=== PATIENT | female | born 1985 | race Caucasian/White ===

== ENCOUNTER 2022-07-18 20:47 | Emergency (ER) | payer OTHER ==
[~2022-07-18] VITALS: Ht 152.4 cm; Wt 70.8 kg
[2022-07-18 21:04] VITALS: BP 110/75
--- NOTE | 2022-07-18 21:05 | NUR ---
TO LOBBY A/W BED AMBULATORY
--- NOTE | 2022-07-19 00:15 | NUR ---
ER EVALUATING PT
--- NOTE | 2022-07-19 00:15 | NUR ---
Dr. Hagen examining patient.
[2022-07-19] MEDS ORDERED: KETOROLAC 60 MG/2 ML VIAL IM ONE (00:20)
--- NOTE | 2022-07-19 00:40 | NUR ---
[facility]AN AMBULATED TO WITH STEADY GAIT
--- NOTE | 2022-07-19 00:55 | NUR ---
PATIENT MEDICATED AND PLACED IN LOBBY
[2022-07-19 01:58] LABS: APPEARANCE,URINE CLEAR (CLEAR); BILIRUBIN,URINE NEGATIVE (NEGATIVE); BLOOD, URINE NEGATIVE (NEGATIVE); COLOR,URINE YELLOW (YELLOW); LEUKOCYTE ESTERASE ,URINE NEGATIVE (NEGATIVE); NITRITE, URINE NEGATIVE (NEGATIVE); UGLUCOSE NEGATIVE (NEGATIVE)
[2022-07-19] MEDS ORDERED: IBUP-2213 PO (02:20)
[2022-07-19] MEDS ORDERED: LIDO1ADH47 TP (02:20)
[2022-07-19 02:46] VITALS: BP 110/75
--- NOTE | 2022-07-19 02:46 | NUR ---
Patient discharged with v/s stable. Written and verbal after care instructions given and explained. Patient alert, oriented and verbalized understanding of instructions. Ambulatory with steady gait. All questions addressed prior to discharge. ID band removed. Patient advised to follow up with PMD. Rx of IBUPROFEN, LIDODERM given. Patient educated on indication of medication including possible reaction and side effects. Opportunity to ask questions provided and answered.
== END 2022-07-19 02:46 | disposition home or self-care (01) ==
LOC: MED 20:47
DX: B34.9 Viral infection, unspecified (principal); Z20.822 Contact with and (suspected) exposure to COVID-19; M79.10 Myalgia, unspecified site; R10.9 Unspecified abdominal pain; Z88.1 Allergy status to other antibiotic agents; Z79.899 Other long term (current) drug therapy
CPT/HCPCS: 81003; 81025; 87086; 87426; 87804; 96372; 99283; J1885